=== PATIENT | male | born 1970 | race Caucasian/White ===

== ENCOUNTER 2018-03-14 06:03 | Inpatient (IN) | payer MEDICAID, OTHER ==
[~2018-03-14] VITALS: Ht 177.8 cm; Wt 104.9 kg
[2018-03-14] MEDS ORDERED: SODIUM CHLORIDE FLUSH 10ML SYR IVF ONE ×2 (06:30→09:30)
[2018-03-14 06:56] LABS: BASOPHILS # (AUTO) 0.11 x10^3/uL (0-0.1); BASOPHILS % (AUTO) 1 % (0-1); EOSINOPHILS # (AUTO) 0.03 x10^3/uL (0-0.4); EOSINOPHILS % (AUTO) 0 % (1-7); LYMPHOCYTES # (AUTO) 1.48 x10^3/uL (1-3.4); LYMPHOCYTES % (AUTO) 10 % (22-44); MD NO; MEAN CORPUSCULAR HGB CONC 34.4 g/dL (33.2-36.2); MEAN CORPUSCULAR VOLUME 90.2 fL (81-97); MONOCYTES # (AUTO) 0.66 x10^3/uL (0.2-0.8); MONOCYTES % (AUTO) 5 % (2-9); NEUTROPHILS # (AUTO) 12.31 x10^3/uL (1.8-6.8); NEUTROPHILS % (AUTO) 84 % (42-75); PLATELET COUNT 340 x10^3/uL (130-400); RED BLOOD COUNT 5.15 x10^6/uL (4.38-5.82); RED CELL DISTRIBUTION WIDTH 13.5 % (9.4-14.8)
[2018-03-14 06:57] LABS: CULTURE INDICATED? NO; MICROSCOPIC NOT IND
[2018-03-14 07:08] LABS: ALANINE AMINOTRANSFERASE 27 U/L (12-78); ALBUMIN 3.6 g/dL (3.4-5.0); ANION GAP 7 mmol/L (5-15); CALCIUM 8.7 mg/dL (8.5-10.1); CHLORIDE 108 mmol/L (98-107); CREATININE 0.85 mg/dL (0.7-1.3)
[2018-03-14 07:11] LABS: ALKALINE PHOSPHATASE 59 U/L (45-117); BILIRUBIN,TOTAL 0.6 mg/dL (0.2-1.0)
[2018-03-14] MEDS ORDERED: OMNIPAQUE 350 MG/ML, 150 ML BOTTLE ONE (08:05)
[2018-03-14] MEDS ORDERED: AMPICILLIN/SULBACTAM 3 GM in SODIUM CHLORIDE 0.9% 100 ML IV ONE (09:00)
[2018-03-14] MEDS ORDERED: morphine SULFATE 10 MG/ML, 1ML IVPush ONE (09:30)
[2018-03-14] MEDS ORDERED: SODIUM CHLORIDE 0.9% 1,000ML IVBOLUS ONE (09:30)
[2018-03-14] MEDS ORDERED: MORPHINE SULFATE 4 MG/ML, 1ML ONE (09:33)
[2018-03-14 10:36] VITALS: BP 138/87
[2018-03-14] MEDS ORDERED: morphine SULFATE 10 MG/ML, 1ML IVPush PRN (11:00)
[2018-03-14] MEDS: AMPICILLIN/SULBACTAM 3 GM in SODIUM CHLORIDE 0.9% 100 ML IV SCH ×3 (11:00→18:52)
[2018-03-14] MEDS ORDERED: KETOROLAC 30 MG/1 ML IV PRN (11:00)
[2018-03-14] MEDS ORDERED: ONDANSETRON 2MG/ML, 2ML IVPush PRN (11:00)
[2018-03-14] MEDS ORDERED: ENALAPRILAT 1.25 MG/ML, 2ML IVPush PRN (11:00)
[2018-03-14] MEDS ORDERED: TEMAZEPAM 15 MG CAPSULE PO PRN (11:00)
[2018-03-14 12:47] VITALS: BP 137/90
[2018-03-14] MEDS: SODIUM CHLORIDE 0.9% 1,000 ML IV SCH ×2 (14:02→17:16)
[2018-03-14] MEDS ORDERED: FENTANYL PF 250 MCG/5ML ONE (16:54)
[2018-03-14] MEDS ORDERED: PROPOFOL 10 MG/ML, 20ML ONE (16:54)
[2018-03-14] MEDS ORDERED: ONDANSETRON 2MG/ML, 2ML ONE (17:25)
[2018-03-14] MEDS ORDERED: METOCLOPRAMIDE 5 MG/ML, 2ML ONE ×2 (17:25)
[2018-03-14] MEDS ORDERED: KETOROLAC 30 MG/1 ML ONE (17:44)
[2018-03-14] MEDS ORDERED: ROCURONIUM 10MG/ML,5ML ONE (17:45)
[2018-03-14] MEDS ORDERED: SUCCINYLCHOLINE 20 MG/ML, 10ML ONE (17:45)
[2018-03-14] MEDS ORDERED: HYDROmorphone 2 MG/ML, 1ML ONE (17:46)
[2018-03-14] MEDS ORDERED: PROMETHAZINE 12.5 MG SUPP PR PRN (18:00)
[2018-03-14] MEDS ORDERED: FENTANYL PF 100 MCG/2ML IV PRN (18:00)
[2018-03-14] MEDS ORDERED: ALBUTEROL/IPRATROPIUM 2.5MG/0.5MG, 3 ML NPPB PRN (18:00)
[2018-03-14] MEDS ORDERED: hydrALAzine 20 MG/ML, 1ML IV PRN (18:00)
[2018-03-14] MEDS ORDERED: LABETALOL 5MG/ML, 20ML IV PRN (18:00)
[2018-03-14] MEDS ORDERED: HYDROmorphone 1 MG/ML, 1ML IV PRN (18:00)
[2018-03-14] MEDS ORDERED: OXYcodone 5 MG/5 ML ORAL.SOL UDC PO PRN (18:00)
[2018-03-14] MEDS ORDERED: ACETAMINOPHEN 325 MG TABLET PO PRN (18:00)
[2018-03-14] MEDS ORDERED: ONDANSETRON 2MG/ML, 2ML IV PRN (18:00)
[2018-03-14] MEDS ORDERED: MEPERIDINE/PF 25MG/0.5ML IVPush PRN (18:00)
[2018-03-14] MEDS ORDERED: ALBUTEROL SULFATE 2.5 MG/3 ML NPPB PRN (18:00)
[2018-03-14] MEDS ORDERED: OXYcodone 5 MG/5 ML ORAL.SOL UDC ONE (18:27)
[2018-03-14 20:03] VITALS: BP 117/71
[2018-03-14] MEDS: NICOTINE 14MG/24 HR PATCH.TD24 TD SCH (20:53)
[2018-03-15 00:01] VITALS: BP 117/68
[2018-03-15] MEDS: SODIUM CHLORIDE 0.9% 1,000 ML IV SCH ×3 (00:07→13:26)
[2018-03-15] MEDS: AMPICILLIN/SULBACTAM 3 GM in SODIUM CHLORIDE 0.9% 100 ML IV SCH ×4 (00:57→18:27)
[2018-03-15 03:23] VITALS: BP 118/69
[2018-03-15] MEDS: OXYcodone/APAP 5/325MG TABLET PO PRN ×3 (04:08→18:27)
[2018-03-15 05:36] LABS: BASOPHILS # (AUTO) 0.02 x10^3/uL (0-0.1); BASOPHILS % (AUTO) 0 % (0-1); EOSINOPHILS # (AUTO) 0.12 x10^3/uL (0-0.4); EOSINOPHILS % (AUTO) 1 % (1-7); LYMPHOCYTES # (AUTO) 1.82 x10^3/uL (1-3.4); LYMPHOCYTES % (AUTO) 15 % (22-44); MD NO; MEAN CORPUSCULAR HGB CONC 34.1 g/dL (33.2-36.2); MEAN CORPUSCULAR VOLUME 90.7 fL (81-97); MEAN PLATELET VOLUME 6.9 fL (7.4-10.4); MONOCYTES # (AUTO) 0.56 x10^3/uL (0.2-0.8); MONOCYTES % (AUTO) 5 % (2-9); NEUTROPHILS # (AUTO) 9.57 x10^3/uL (1.8-6.8); NEUTROPHILS % (AUTO) 79 % (42-75); PLATELET COUNT 308 x10^3/uL (130-400); RED BLOOD COUNT 4.19 x10^6/uL (4.38-5.82); RED CELL DISTRIBUTION WIDTH 13.7 % (9.4-14.8)
[2018-03-15 05:44] LABS: CHLORIDE 108 mmol/L (98-107)
[2018-03-15 05:52] LABS: ALANINE AMINOTRANSFERASE 18 U/L (12-78); ALBUMIN 2.7 g/dL (3.4-5.0); ALKALINE PHOSPHATASE 50 U/L (45-117); ANION GAP 6 mmol/L (5-15); BILIRUBIN,TOTAL 0.8 mg/dL (0.2-1.0); CALCIUM 7.7 mg/dL (8.5-10.1); CREATININE 0.85 mg/dL (0.7-1.3); TOTAL PROTEIN 6.5 g/dL (6.4-8.2)
[2018-03-15] MEDS: NICOTINE 14MG/24 HR PATCH.TD24 TD SCH (07:19)
[2018-03-15 07:22] VITALS: BP 134/82
[2018-03-15] MEDS ORDERED: PHARMACOKINETIC CONSULTATION MC ONE (09:00)
[2018-03-15] MEDS ORDERED: PHARMACOKINETIC MONITORING MC PRN (09:00)
[2018-03-15] MEDS ORDERED: VANCOMYCIN PER PHARMACY MC PRN (09:00)
[2018-03-15] MEDS: VANCOMYCIN 1,600 MG in SODIUM CHLORIDE 0.9% 250 ML IV SCH ×2 (10:41→21:32)
[2018-03-15] MEDS: MORPHINE SULFATE 4 MG/ML, 1ML IV PRN ×2 (10:52→23:35)
[2018-03-15 12:27] VITALS: BP 158/91
[2018-03-15 20:14] VITALS: BP 125/72
[2018-03-16] MEDS: AMPICILLIN/SULBACTAM 3 GM in SODIUM CHLORIDE 0.9% 100 ML IV SCH ×4 (00:56→21:07)
[2018-03-16 02:14] VITALS: BP 127/83
[2018-03-16 06:25] LABS: BASOPHILS # (AUTO) 0.07 x10^3/uL (0-0.1); BASOPHILS % (AUTO) 1 % (0-1); EOSINOPHILS # (AUTO) 0.33 x10^3/uL (0-0.4); EOSINOPHILS % (AUTO) 3 % (1-7); LYMPHOCYTES # (AUTO) 1.33 x10^3/uL (1-3.4); LYMPHOCYTES % (AUTO) 13 % (22-44); MD NO; MEAN CORPUSCULAR HEMOGLOBIN 30.7 pg (27.5-34.5); MEAN CORPUSCULAR HGB CONC 33.9 g/dL (33.2-36.2); MEAN CORPUSCULAR VOLUME 90.6 fL (81-97); MONOCYTES # (AUTO) 0.43 x10^3/uL (0.2-0.8); MONOCYTES % (AUTO) 4 % (2-9); NEUTROPHILS # (AUTO) 8.35 x10^3/uL (1.8-6.8); NEUTROPHILS % (AUTO) 80 % (42-75); PLATELET COUNT 340 x10^3/uL (130-400); RED BLOOD COUNT 4.59 x10^6/uL (4.38-5.82); RED CELL DISTRIBUTION WIDTH 13.8 % (9.4-14.8)
[2018-03-16 06:40] LABS: ANION GAP 7 mmol/L (5-15); CALCIUM 8.8 mg/dL (8.5-10.1); CHLORIDE 106 mmol/L (98-107)
[2018-03-16 06:44] LABS: ALANINE AMINOTRANSFERASE 21 U/L (12-78); ALKALINE PHOSPHATASE 52 U/L (45-117); BILIRUBIN,TOTAL 0.5 mg/dL (0.2-1.0); CREATININE 0.88 mg/dL (0.7-1.3); TOTAL PROTEIN 7.1 g/dL (6.4-8.2)
[2018-03-16] MEDS: OXYcodone/APAP 5/325MG TABLET PO PRN ×2 (07:42→14:52)
[2018-03-16] MEDS: NICOTINE 14MG/24 HR PATCH.TD24 TD SCH (07:43)
[2018-03-16 07:51] VITALS: BP 136/77
[2018-03-16] MEDS: VANCOMYCIN 1,600 MG in SODIUM CHLORIDE 0.9% 250 ML IV SCH (09:37)
[2018-03-16] MEDS: MORPHINE SULFATE 4 MG/ML, 1ML IV PRN ×2 (11:15→22:47)
[2018-03-16 12:52] VITALS: BP 133/77
[2018-03-16 15:12] LABS: HCT (SEDRATE) 41.4 % (39.2-51.8)
[2018-03-16 19:16] VITALS: BP 126/76
[2018-03-16] MEDS ORDERED: VANCOMYCIN 1,600 MG in SODIUM CHLORIDE 0.9% 250 ML IV SCH (22:30)
[2018-03-17 01:24] VITALS: BP 132/75
[2018-03-17] MEDS: AMPICILLIN/SULBACTAM 3 GM in SODIUM CHLORIDE 0.9% 100 ML IV SCH ×4 (02:37→20:36)
[2018-03-17 05:21] LABS: BASOPHILS # (AUTO) 0.04 x10^3/uL (0-0.1); BASOPHILS % (AUTO) 1 % (0-1); EOSINOPHILS # (AUTO) 0.55 x10^3/uL (0-0.4); EOSINOPHILS % (AUTO) 7 % (1-7); LYMPHOCYTES # (AUTO) 1.02 x10^3/uL (1-3.4); LYMPHOCYTES % (AUTO) 12 % (22-44); MD NO; MEAN CORPUSCULAR HEMOGLOBIN 31.3 pg (27.5-34.5); MEAN CORPUSCULAR HGB CONC 34.4 g/dL (33.2-36.2); MEAN CORPUSCULAR VOLUME 91.1 fL (81-97); MONOCYTES # (AUTO) 0.44 x10^3/uL (0.2-0.8); MONOCYTES % (AUTO) 5 % (2-9); NEUTROPHILS # (AUTO) 6.43 x10^3/uL (1.8-6.8); NEUTROPHILS % (AUTO) 76 % (42-75); PLATELET COUNT 341 x10^3/uL (130-400); RED BLOOD COUNT 4.57 x10^6/uL (4.38-5.82); RED CELL DISTRIBUTION WIDTH 13.4 % (9.4-14.8)
[2018-03-17 05:25] LABS: ANION GAP 6 mmol/L (5-15); CALCIUM 8.6 mg/dL (8.5-10.1); CHLORIDE 106 mmol/L (98-107)
[2018-03-17 05:26] LABS: CREATININE 0.82 mg/dL (0.7-1.3)
[2018-03-17 07:11] VITALS: BP 135/84
[2018-03-17] MEDS: NICOTINE 14MG/24 HR PATCH.TD24 TD SCH (08:47)
[2018-03-17] MEDS: MORPHINE SULFATE 4 MG/ML, 1ML IV PRN (10:24)
[2018-03-17 12:26] VITALS: BP 151/91
[2018-03-17] MEDS: OXYcodone/APAP 5/325MG TABLET PO PRN (17:07)
[2018-03-17 18:37] VITALS: BP 145/81
[2018-03-18] MEDS: MORPHINE SULFATE 4 MG/ML, 1ML IV PRN ×3 (01:09→23:11)
[2018-03-18] MEDS: AMPICILLIN/SULBACTAM 3 GM in SODIUM CHLORIDE 0.9% 100 ML IV SCH ×4 (01:41→20:19)
[2018-03-18 01:49] VITALS: BP 147/88
[2018-03-18 07:25] VITALS: BP 145/85
[2018-03-18] MEDS: NICOTINE 14MG/24 HR PATCH.TD24 TD SCH (07:44)
[2018-03-18 13:11] VITALS: BP 140/82
[2018-03-18 20:22] VITALS: BP 148/85
[2018-03-19] MEDS: AMPICILLIN/SULBACTAM 3 GM in SODIUM CHLORIDE 0.9% 100 ML IV SCH ×4 (02:12→19:20)
[2018-03-19 02:26] VITALS: BP 132/84
[2018-03-19] MEDS: OXYcodone/APAP 5/325MG TABLET PO PRN (05:31)
[2018-03-19 06:45] VITALS: BP 155/88
[2018-03-19] MEDS: NICOTINE 14MG/24 HR PATCH.TD24 TD SCH (09:12)
[2018-03-19] MEDS: MORPHINE SULFATE 4 MG/ML, 1ML IV PRN ×2 (12:44→23:12)
[2018-03-19 13:53] VITALS: BP 147/88
[2018-03-19 20:15] VITALS: BP 144/84
[2018-03-20] MEDS: AMPICILLIN/SULBACTAM 3 GM in SODIUM CHLORIDE 0.9% 100 ML IV SCH ×4 (01:57→20:41)
[2018-03-20 02:02] VITALS: BP 124/79
[2018-03-20 07:23] VITALS: BP 136/85
[2018-03-20] MEDS: NICOTINE 14MG/24 HR PATCH.TD24 TD SCH (07:47)
[2018-03-20] MEDS: MORPHINE SULFATE 4 MG/ML, 1ML IV PRN ×2 (10:41→22:34)
[2018-03-20 13:11] VITALS: BP 144/84
[2018-03-20 20:18] VITALS: BP 122/77
[2018-03-21 00:41] VITALS: BP 109/72
[2018-03-21] MEDS: AMPICILLIN/SULBACTAM 3 GM in SODIUM CHLORIDE 0.9% 100 ML IV SCH ×2 (02:44→08:19)
[2018-03-21 05:16] LABS: BASOPHILS # (AUTO) 0.03 x10^3/uL (0-0.1); BASOPHILS % (AUTO) 0 % (0-1); EOSINOPHILS % (AUTO) 5 % (1-7); LYMPHOCYTES % (AUTO) 19 % (22-44); MD NO; MEAN CORPUSCULAR HEMOGLOBIN 31.1 pg (27.5-34.5); MEAN CORPUSCULAR HGB CONC 34.4 g/dL (33.2-36.2); MEAN CORPUSCULAR VOLUME 90.3 fL (81-97); MEAN PLATELET VOLUME 6.7 fL (7.4-10.4); MONOCYTES # (AUTO) 0.59 x10^3/uL (0.2-0.8); MONOCYTES % (AUTO) 8 % (2-9); NEUTROPHILS # (AUTO) 5.27 x10^3/uL (1.8-6.8); NEUTROPHILS % (AUTO) 68 % (42-75); PLATELET COUNT 405 x10^3/uL (130-400); RED BLOOD COUNT 4.59 x10^6/uL (4.38-5.82); RED CELL DISTRIBUTION WIDTH 13.5 % (9.4-14.8)
[2018-03-21 05:23] LABS: ALBUMIN 3.1 g/dL (3.4-5.0); ANION GAP 5 mmol/L (5-15); CALCIUM 8.6 mg/dL (8.5-10.1); CHLORIDE 107 mmol/L (98-107)
[2018-03-21 05:31] LABS: ALANINE AMINOTRANSFERASE 40 U/L (12-78); ALKALINE PHOSPHATASE 50 U/L (45-117); BILIRUBIN,TOTAL 0.3 mg/dL (0.2-1.0); CREATININE 0.99 mg/dL (0.7-1.3); TOTAL PROTEIN 7.6 g/dL (6.4-8.2)
[2018-03-21 06:19] LABS: HCT (SEDRATE) 41.4 % (39.2-51.8)
[2018-03-21 07:28] VITALS: BP 143/84
[2018-03-21] MEDS: NICOTINE 14MG/24 HR PATCH.TD24 TD SCH (08:16)
[2018-03-21] MEDS: MORPHINE SULFATE 4 MG/ML, 1ML IV PRN ×2 (10:56→23:30)
[2018-03-21] MEDS ORDERED: AMOXICILLIN/CLAV 1000-62.5MG TABLET ER.12H PO SCH (13:30)
[2018-03-21 13:48] VITALS: BP 120/71
[2018-03-21] MEDS: AMOXICILLIN/CLAV 875-125MG TABLET PO SCH ×2 (14:06→23:49)
[2018-03-21] MEDS: OXYcodone/APAP 5/325MG TABLET PO PRN (17:27)
[2018-03-21 19:27] VITALS: BP 134/81
[2018-03-22 01:44] VITALS: BP 126/83
[2018-03-22 07:20] VITALS: BP 159/81
[2018-03-22] MEDS: NICOTINE 14MG/24 HR PATCH.TD24 TD SCH (08:52)
[2018-03-22] MEDS: OXYcodone/APAP 5/325MG TABLET PO PRN (08:52)
[2018-03-22] MEDS: AMOXICILLIN/CLAV 875-125MG TABLET PO SCH (08:52)
[2018-03-22] MEDS: MORPHINE SULFATE 4 MG/ML, 1ML IV PRN (10:45)
[2018-03-22 13:29] VITALS: BP 155/96
[2018-03-22] MEDS ORDERED: METR500T PO (15:42)
[2018-03-22] MEDS ORDERED: AMOX1TAB61 PO (15:42)
[2018-03-22] MEDS ORDERED: OXYC1TAB7 PO (15:42)
== END 2018-03-22 17:00 | disposition home or self-care (01) | DRG 854 ==
LOC: ED 09:24 → 4NOR 09:25
PROVIDERS: ADMIT Hospitalist; ATTEND Family Medicine
PROC: 0Y910ZZ Drainage of Left Buttock, Open Approach (ICD-10-PCS; 2018-03-14)
PROC: 0V950ZZ Drainage of Scrotum, Open Approach (ICD-10-PCS; principal; 2018-03-14 17:15)
DX: A41.9 Sepsis, unspecified organism (principal); L02.214 Cutaneous abscess of groin; L02.31 Cutaneous abscess of buttock; E66.9 Obesity, unspecified; I10 Essential (primary) hypertension; N49.2 Inflammatory disorders of scrotum; N50.89 Other specified disorders of the male genital organs; Z72.0 Tobacco use; Z68.33 Body mass index [BMI] 33.0-33.9, adult; Z80.0 Family history of malignant neoplasm of digestive organs; Z80.1 Family history of malignant neoplasm of trachea, bronchus and lung; Z80.3 Family history of malignant neoplasm of breast; Z82.49 Family history of ischemic heart disease and other diseases of the circulatory system; Z23 Encounter for immunization
CPT/HCPCS: 36415; 72193; 80048; 80053; 80202; 81003; 83605; 83735; 84100; 84145; 84443; 85025; 85651; 86140; 87040; 87070; 87075; 87076; 87205; 88305; 90656; 96374; 96375; 99285; G0378; J0295; J1170; J1885; J2405; J2704; J3010; J3370; Q9967; J0330; J2270; J2765; J7030; J7050

== ENCOUNTER 2018-03-22 22:31 | Emergency (ER) | payer SELFPAY ==
[~2018-03-22] VITALS: Ht 177.8 cm; Wt 104.0 kg
[~2018-03-22 22:31] MED LIST: AMOX1TAB61 PO; METR500T PO; OXYC1TAB7 PO
[2018-03-22] MEDS ORDERED: SODIUM CHLORIDE 0.9% 1,000ML IVBOLUS ONE (23:30)
[2018-03-22 23:45] LABS: ALBUMIN 3.7 g/dL (3.4-5.0); ANION GAP 9 mmol/L (5-15); BASOPHILS # (AUTO) 0.04 x10^3/uL (0-0.1); BASOPHILS % (AUTO) 0 % (0-1); CALCIUM 9.1 mg/dL (8.5-10.1); CHLORIDE 106 mmol/L (98-107); EOSINOPHILS # (AUTO) 0.09 x10^3/uL (0-0.4); EOSINOPHILS % (AUTO) 1 % (1-7); LYMPHOCYTES # (AUTO) 1.95 x10^3/uL (1-3.4); LYMPHOCYTES % (AUTO) 11 % (22-44); MD NO; MEAN CORPUSCULAR HGB CONC 34.8 g/dL (33.2-36.2); MEAN CORPUSCULAR VOLUME 89.1 fL (81-97); MEAN PLATELET VOLUME 6.7 fL (7.4-10.4); MONOCYTES # (AUTO) 0.58 x10^3/uL (0.2-0.8); MONOCYTES % (AUTO) 3 % (2-9); NEUTROPHILS # (AUTO) 14.64 x10^3/uL (1.8-6.8); NEUTROPHILS % (AUTO) 85 % (42-75); PLATELET COUNT 482 x10^3/uL (130-400); RED BLOOD COUNT 4.94 x10^6/uL (4.38-5.82); RED CELL DISTRIBUTION WIDTH 13.2 % (9.4-14.8)
[2018-03-23 01:36] VITALS: BP 133/84
== END 2018-03-23 01:38 | disposition home or self-care (01) ==
LOC: ED 23:05
DX: R10.30 Lower abdominal pain, unspecified (principal); R55 Syncope and collapse; F17.200 Nicotine dependence, unspecified, uncomplicated
CPT/HCPCS: 36415; 71045; 80048; 82040; 85025; 93005; 96360; 99285; J7030

== ENCOUNTER 2018-03-26 10:58 | Emergency (ER) | payer SELFPAY ==
[~2018-03-26] VITALS: Ht 177.8 cm; Wt 102.3 kg
[2018-03-26 11:01] VITALS: BP 168/99
[2018-03-26] MEDS ORDERED: HYDROcodone/APAP 5/325 TABLET PO ONE (12:00)
[2018-03-26] MEDS ORDERED: AMOXICILLIN/CLAV 875-125MG TABLET PO ONE (12:00)
[2018-03-26] MEDS ORDERED: AMOXICILLIN/CLAV 875-125MG TABLET ONE (12:04)
[2018-03-26] MEDS ORDERED: HYDROcodone/APAP 5/325 TABLET ONE (12:05)
== END 2018-03-26 12:16 | disposition home or self-care (01) ==
LOC: ED 11:56
DX: N49.2 Inflammatory disorders of scrotum (principal)
CPT/HCPCS: 99283